=== PATIENT | female | born 1970 | race Caucasian/White ===

== ENCOUNTER 2017-10-24 10:29 | Day surgery (SDC) | payer OTHER | END 2017-10-24 13:10 | disposition home or self-care (01) | LOC: AMB-ENDOS 10:29 | DX: K21.9 Gastro-esophageal reflux disease without esophagitis (principal); K44.9 Diaphragmatic hernia without obstruction or gangrene; B96.81 Helicobacter pylori [H. pylori] as the cause of diseases classified elsewhere; K29.80 Duodenitis without bleeding; K29.30 Chronic superficial gastritis without bleeding ==